=== PATIENT | female | born 1990 | race American Indian/Alaskan Native ===

== ENCOUNTER 2017-05-18 11:02 | Inpatient (IN) | payer MEDICAID ==
[2017-05-18 13:36] LABS: Hematocrit 35.2 % (30.3-42.9); Hemoglobin 11.7 gm/dl (10.1-14.3); Mean Corpuscular HGB Conc 33 % (30-34); Mean Corpuscular Hemoglobin 32 pg (28-32); Mean Corpuscular Volume 96 fl (79-97); Platelet Count 190 K/mm3 (140-440); Red Blood Count 3.68 M/mm3 (3.65-5.03); Red Cell Distribution Width 13.9 % (13.2-15.2); White Blood Count 8.9 K/mm3 (4.5-11.0)
[2017-05-18] MEDS ORDERED: ePHEDrine SULFATE IV PRN (14:17)
[2017-05-18] MEDS ORDERED: NARCAN 0.4 MG/1 ML IV PRN ×2 (14:17→21:16)
[2017-05-18] MEDS ORDERED: SUBLIMAZE IV PRN (14:17)
[2017-05-18] MEDS ORDERED: XYLOCAINE 2% INFILTRATI ONE (14:17)
[2017-05-18] MEDS ORDERED: PHENERGAN PO PRN (14:17)
[2017-05-18] MEDS ORDERED: STADOL IV PRN (14:17)
[2017-05-18] MEDS ORDERED: ZOFRAN IV PRN (14:17)
[2017-05-18] MEDS ORDERED: MINERAL OIL PO PRN (14:17)
[2017-05-18] MEDS ORDERED: BRETHINE SUB-Q PRN (14:27)
[2017-05-18] MEDS ORDERED: BRETHINE IVP PRN (14:29)
[2017-05-18] MEDS ORDERED: PITOCin/NS 30 UNIT/500ML 30 UNITS/500 ML BAG IV SCH ×2 (15:00)
[2017-05-18] MEDS ORDERED: PITOCin/NS 20 UNIT/1000ML DRIP 20 UNITS/1,000 ML BAG IV SCH ×3 (15:00→22:00)
--- NOTE | 2017-05-18 15:15 | History and Physical Report ---
History of Present Illness Date of examination: 05/18/17 Date of admission: 05/18/17 13:57 Chief complaint: lsrom clear this am History of present illness: 26 yo at 37+1 weeks came in for srom clear this am . She has no other complaints. Good fm no vb No contractions. 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: trichomonas (treated jl neg in february ) Family/Genetic History: cancer (breast cancer Grandmother ) Social history: smoking - Obstetrical History Expected Date of Delivery: 06/07/17 Actual Gestation: 37 Week(s) 1 Day(s) : 1 Para: 0 Hx # Term Pregnancies: 0 Number of Pregnancies: 0 Spontaneous Abortions: 0 Induced : 0 Number of Living Children: 0 Medications and Allergies Allergies Allergy/AdvReac Type Severity Reaction Status Date / Time No Known Allergies Allergy Unverified 07/24/13 13:27 Home Medications Medication Instructions Recorded Confirmed Last Taken Type Gentamicin 0.3% Ophth Soln 2 drops OP Q4H #1 bottle 03/03/14 Unknown Rx HYDROcodone/APAP 5-325 [[place] 1 each PO Q6HR PRN #14 tablet 03/03/14 Unknown Rx 5-325 mg TAB] Active Meds: Active Medications Butorphanol Tartrate (Stadol) 2 mg IV Q2H PRN PRN Reason: Pain , Severe (7-10) Fentanyl (Sublimaze) 100 mcg IV Q2H PRN PRN Reason: Labor Pain Lactated Ringer's (Lactated Ringers) 1,000 mls @ 125 mls/hr IV DIRECT ADOLFO Oxytocin/Sodium Chloride (Pitocin/Ns 20 Unit/1000ml Drip) 20 units in 1,000 mls @ 125 mls/hr IV DIRECT ADOLFO Oxytocin/Sodium Chloride (Pitocin/Ns 30 Unit/500ml) 30 units in 500 mls @ 0 mls /hr IV TITR ADOLFO; As Directed PRN Reason: Protocol Oxytocin/Sodium Chloride (Pitocin/Ns 30 Unit/500ml) 30 units in 500 mls @ 1 mls /hr IV TITR ADOLFO; 1 MILLIUNITS/MIN PRN Reason: Protocol Mineral Oil (Mineral Oil) 30 ml PO QHS PRN PRN Reason: Constipation Naloxone HCl (Narcan 0.4 Mg/1 Ml) 0.1 mg IV Q2MIN PRN PRN Reason: Res Rate </= 8 or 02 SAT < 92% Ondansetron HCl (Zofran) 4 mg IV Q8H PRN PRN Reason: Nausea And Vomiting Promethazine HCl (Phenergan) 25 mg PO Q6H PRN PRN Reason: Nausea And Vomiting Review of Systems Genitourinary: leakage of fluid - Vital Signs Vital signs: Vital Signs Pulse Pulse Ox 270 H 82 L 05/18/17 11:43 05/18/17 11:43 Temp Pulse Resp BP Pulse Ox 79 143/92 82 L 05/18/17 14:38 05/18/17 14:38 05/18/17 12:44 - Physical Exam Breasts: Positive: deferred Cardiovascular: Regular rate, Normal S1 Lungs: Positive: Clear to auscultation, Normal air movement Abdomen: Positive: normal appearance, soft, normal bowel sounds. Negative: distention Genitourinary (Female): Positive: normal external genitalia, normal perenium Uterus: Positive: normal size, enlarged Anus/Rectum: Positive: normal perianal skin, heme negative Extremities: Positive: normal Deep Tendon Reflex Grade: Normal +2 - Obstetrical FHR: category 1 Cervical Dilatation: 1.5 Cervical Effacement Percentage: 30 station: -4 Uterine Tone Measurement Phase: Resting Results Result Diagrams: 05/18/17 13:02 All other labs normal. Assessment and Plan A/P IUP 37+1 weeks Morbid obesity unknown GBS ( per patient neg) SROM clear non compliant gestational diabetic ( did not perform glucose monitoring) FS q3hrs US for presentation, efw, location of placenta and BPP EFM consider augmentation of labor
[2017-05-18 16:49] LABS: Hematocrit 32.4 % (30.3-42.9); Hemoglobin 11.1 gm/dl (10.1-14.3); Mean Corpuscular HGB Conc 34 % (30-34); Mean Corpuscular Hemoglobin 32 pg (28-32); Mean Corpuscular Volume 95 fl (79-97); Platelet Count 169 K/mm3 (140-440); Red Blood Count 3.43 M/mm3 (3.65-5.03); Red Cell Distribution Width 14.3 % (13.2-15.2); White Blood Count 7.8 K/mm3 (4.5-11.0)
--- NOTE | 2017-05-18 18:34 | Ultrasound Report ---
FINAL REPORT EXAM: US OB TRANSVAGINAL HISTORY: placenta scan TECHNIQUE: Obstetrical ultrasound transvaginal for evaluation of the placenta PRIORS: None. FINDINGS: The placenta is posterior and right lateral. It does not appear low lying. Placental grade 3. No evidence for abruption IMPRESSION: Stent is posterior and right lateral
--- NOTE | 2017-05-18 18:41 | Ultrasound Report ---
FINAL REPORT EXAM: US OB FOLLOW UP HISTORY: BPP, EFW, CRISTO, placenta location, TECHNIQUE: Ultrasound obstetrical transabdominal PRIORS: No prior studies are available for comparison FINDINGS: Single live intrauterine gestation is identified. biometric measurements were obtained Biparietal diameter 37 weeks 6 days Head circumference 37 weeks 2 days Abdominal circumference 37 weeks 2 days Femur length 37 weeks 2 days Composite gestational age 37 weeks 3 days with estimated date of delivery June 05, 2017 Estimated weight today is 3176 grams 7 pounds 0 ounces. This is 62 percentile for gestational age. cardiac activity present with heart rate of 136 beats per minute IMPRESSION: Single live intrauterine gestation estimated at 37 weeks 3 days Estimated weight 3176 grams
--- NOTE | 2017-05-18 18:50 | Ultrasound Report ---
FINAL REPORT EXAM: US OB BPP WO NON-STRESS HISTORY: iup 37 weeks, GDM, obesity, noncompliance TECHNIQUE: Ultrasound obstetrical biophysical profile PRIORS: None. FINDINGS: Biophysical profile performed Breathing movement 0 movement 0 posture in tone 0 Amniotic fluid volume 0 Deepest pocket measurement 0. Deepest pocket as noted on the ultrasound is 1.8 less than 2. IMPRESSION: Biophysical profile 0/8 Oligohydramnios with amniotic fluid index of 4.2 centimeters
[2017-05-18] MEDS ORDERED: BICITRA ONE (19:00)
[2017-05-18] MEDS ORDERED: REGLAN IV ONE (19:00)
[2017-05-18] MEDS ORDERED: PEPCID IV ONE ×2 (19:00→19:01)
[2017-05-18] MEDS ORDERED: BICITRA PO ONE (19:00)
[2017-05-18] MEDS ORDERED: NEO SYNEPHRINE/NS Syringe(OR USE) IV ONE (19:00)
[2017-05-18] MEDS ORDERED: ANCEF/STERILE WATER 2 GM/20 ML 2 GM/20 ML SYRINGE IV NR (19:00)
[2017-05-18] MEDS ORDERED: LACTATED RINGERS 1,000 ML IV SCH (19:00)
[2017-05-18] MEDS ORDERED: REGLAN ONE (19:01)
[2017-05-18] MEDS ORDERED: ANCEF/STERILE WATER 2 GM/20 ML 2 GM/20 ML SYRINGE IV ONE (19:01)
--- NOTE | 2017-05-18 19:23 | Anesthesia Consultation ---
Anesthesia Consult and Med Hx Date of service: 05/18/17 - Airway Anesthetic Teeth Evaluation: Good ROM Head & Neck: Adequate Mental/Hyoid Distance: Adequate Mallampati Class: Class II Intubation Access Assessment: Probably Good - Pulmonary Exam CTA: Yes - Cardiac Exam Cardiac Exam: RRR - Pre-Operative Health Status ASA Pre-Surgery Classification: ASA3 Proposed Anesthetic Plan: Epidural, Spinal - Pulmonary Hx Asthma: No COPD: No Hx Pneumonia: No - Cardiovascular System Hx Hypertension: No - Central Nervous System Hx Seizures: No Hx Psychiatric Problems: No - Endocrine Hx Renal Disease: No Hx End Stage Renal Disease: No Hx Hypothyroidism: No Hx Hyperthyroidism: No - Hematic Hx Anemia: No Hx Sickle Cell Disease: No - Other Systems Hx Alcohol Use: No Hx Obesity: Yes (BMI >40) - Additional Comments Anesthesia Medical History Comments: +IUP
[2017-05-18] MEDS ORDERED: BENADRYL IV PRN (19:24)
[2017-05-18] MEDS ORDERED: MORPHINE IV PRN ×3 (19:24→21:16)
[2017-05-18] MEDS ORDERED: TORADOL IV PRN (19:24)
[2017-05-18] MEDS ORDERED: NACL 0.9% IR ONE (19:25)
[2017-05-18] MEDS ORDERED: MORPHINE ONE (19:26)
[2017-05-18] MEDS ORDERED: ZOFRAN ONE (19:33)
[2017-05-18] MEDS ORDERED: ANCEF/STERILE WATER 2 GM/20 ML IV ONE (19:50)
[2017-05-18] MEDS ORDERED: SODIUM CHLORIDE FLUSH SYRINGE 10 ML IV NR (20:00)
[2017-05-18] MEDS ORDERED: VERSED ONE ×2 (20:23→20:42)
[2017-05-18] MEDS ORDERED: SUBLIMAZE ONE (20:41)
[2017-05-18] MEDS ORDERED: WATER FOR IRRIG STERILE IR ONE (21:00)
--- NOTE | 2017-05-18 21:10 | Procedure Note ---
OB Delivery Note - Delivery Date of Delivery: 05/18/17 Surgeon: MICHELLE ZARAGOZA Estimated blood loss: other (800 cc) - Section Preop diagnosis: other (BPP 2, ) Postop diagnosis: same section procedure: section Disposition: PACU Complications: none Narrative: see op note- - Infant A at 1 minute: 8 at 5 minutes: 9 Gender: Female
[2017-05-18] MEDS ORDERED: NORCO 5/325 PO PRN (21:16)
[2017-05-18] MEDS ORDERED: TUCKS PAD TP PRN (21:16)
[2017-05-18] MEDS ORDERED: PHENERGAN PR PRN (21:16)
[2017-05-18] MEDS ORDERED: TYLENOL PO PRN (21:16)
[2017-05-18] MEDS ORDERED: MILK OF MAGNESIA PO PRN (21:16)
[2017-05-18] MEDS ORDERED: MYLICON PO PRN (21:16)
[2017-05-18] MEDS ORDERED: LANSINOH TP PRN (21:16)
[2017-05-18] MEDS ORDERED: SENOKOT PO PRN (21:16)
[2017-05-18] MEDS ORDERED: ANUCORT-HC PR PRN (21:16)
--- NOTE | 2017-05-18 21:16 | Operative Report ---
Operative Report Operative Report: PREOPERATIVE DIAGNOSES: 1. Intrauterine at term. 2. BPP 2/10 3. GDM 4. SROM 5. Morbid Obesity POSTOPERATIVE DIAGNOSES: 1 SUNSHINE PROCEDURE PERFORMED: Primary low-transverse section. ANESTHESIA: Epidural. ESTIMATED BLOOD LOSS: 800 mL. COMPLICATIONS: None. FINDINGS: Female infant in cephalic presentation, OA position, weight 8 pounds 4 ounces. Apgars were 9 at 1 minute and 9 at 5 minutes. Normal uterus, tubes, and ovaries were noted. INDICATIONS: The patient is a 26-year-old 1, para 0 female, who presented to labor and delivery with SROM at 37 weeks Patient had a BPP revealing a BPP 0/8 A decision was made to proceed with a primary low transverse section. The procedure was described to the patient in detail including possible risks of bleeding, infection, injury to surrounding organs, and possible need for further surgery. Informed consent was obtained prior to proceeding with the procedure. PROCEDURE NOTE: The patient was taken to the operating room where epidural anesthesia was found to be adequate. The patient was prepped and draped in the usual sterile fashion in the dorsal supine position with a left-leon tilt. A Pfannenstiel skin incision was made with the scalpel and carried through to the underlying layer of fascia using the Bovie. The fascia was incised in the midline and extended laterally using Floyd scissors. Monroe clamps were used to elevate the superior aspect of the fascial incision, which was elevated, and the underlying rectus muscles were dissected off bluntly and using Floyd scissors. Attention was then turned to the inferior aspect of the fascial incision, which in similar fashion was grasped with Monroe clamps, elevated, and the underlying rectus muscles were dissected off bluntly and using Floyd scissors. The rectus muscles were dissected in the midline. The peritoneum was bluntly dissected, entered, and extended superiorly and inferiorly with good visualization of the bladder. The bladder blade was inserted. The vesicouterine peritoneum was identified with pickups and entered sharply using Metzenbaum scissors. This incision was extended laterally and the bladder flap was created digitally. The bladder blade was reinserted. The lower uterine segment was incised in a transverse fashion using the scalpel and extended using manual traction. Clear fluid was noted. The infant was subsequently delivered atraumatically. The nose and mouth were bulb suctioned. The cord was clamped and cut. The was subsequently handed to the awaiting nursery nurse. Next, cord blood was obtained per the patient's request for cord blood donation, which took several minutes to perform. Subsequent to the collection of this blood, the placenta was removed spontaneously intact with a 3-vessel cord noted. The uterus was exteriorized and cleared of all clots and debris. The uterine incision was repaired in 2 layers using 0 chromic suture. Hemostasis was visualized. The uterus was returned to the abdomen. The pelvis was copiously irrigated. The uterine incision was reexamined and was noted to be hemostatic. The rectus muscles were reapproximated in the midline using 3-0 Vicryl. The fascia was closed with 0 Vicryl, the subcutaneous layer was closed with 3-0 plain gut, and the skin was closed with marcus. Sponge, lap , and instrument counts were correct x2. The patient was stable at the completion of the procedure and was subsequently transferred to the recovery room in stable condition.
--- NOTE | 2017-05-18 21:36 | Post Anesthesia Evaluation ---
- Post Anesthesia Evaluation Patient Participated: Yes Airway Patent: Yes Stable Respiratory Function: Yes Nausea/Vomiting: No Temp > 96.8F: Yes Pain Manageable: Yes Adequeate Hydration: Yes Anesthesia Complications: No Block Receding Appropriately: Not Applicable Patient on Ventilator: No
[2017-05-18] MEDS ORDERED: SODIUM CHLORIDE FLUSH SYRINGE 10 ML IV SCH (22:00)
[2017-05-19] MEDS: LACTATED RINGERS 1,000 ML IV SCH ×2 (01:31→08:48)
[2017-05-19] MEDS ORDERED: BOOSTRIX IM ONE (06:00)
[2017-05-19 09:26] LABS: Hematocrit 24.6 % (30.3-42.9); Hemoglobin 8.2 gm/dl (10.1-14.3)
[2017-05-19] MEDS: PERCOCET 5/325 PO PRN ×2 (12:56→17:02)
[2017-05-19] MEDS ORDERED: BENADRYL PO PRN (15:35)
--- NOTE | 2017-05-19 16:57 | Progress Note ---
Assessment and Plan POD#1 s/p c/s doing well ambulating well pain well controlled advance diet continue routine post op orders Subjective - Subjective Date of service: 05/19/17 Principal diagnosis: s/p Interval history: 26 yo at 37+1 weeks came in for srom clear this am . She has no other complaints. Good fm no vb No contractions. OB problem list include Trich in this JL neg 03/07 smoker hx of low lying placenta resolved elevated 1hr GTT -diet controlled-non compliant in [facility] and testing no meds Patient reports: appetite normal, voiding normally, pain well controlled, flatus , ambulating normally : doing well, nursing well Objective - Vital Signs Latest vital signs: Vital Signs Temp Pulse Resp BP Pulse Ox 05/19/17 08:05 99.2 F 88 18 132/66 05/19/17 05:08 98.7 F 72 20 141/79 05/18/17 23:15 98.4 F 80 18 144/70 05/18/17 22:25 95 H 17 134/73 97 05/18/17 22:20 108 H 21 133/78 97 05/18/17 22:15 112 H 20 152/85 97 05/18/17 22:13 98.8 F 05/18/17 22:10 88 20 137/81 98 05/18/17 22:05 100 H 16 148/91 100 05/18/17 22:00 91 H 18 155/78 99 05/18/17 21:55 78 13 146/68 100 05/18/17 21:50 92 H 21 133/76 99 05/18/17 21:46 104 H 26 H 133/76 100 05/18/17 21:40 89 24 115/73 05/18/17 21:36 94 H 17 126/77 98 05/18/17 21:30 73 16 150/63 05/18/17 21:25 73 17 145/67 99 05/18/17 21:20 86 21 05/18/17 21:19 98.1 F 05/18/17 18:52 99 H 100 05/18/17 18:47 91 H 100 05/18/17 18:42 75 100 05/18/17 18:37 73 99 05/18/17 18:32 98.4 F 66 16 110/60 100 05/18/17 18:27 92 H 100 05/18/17 18:23 82 153/79 05/18/17 18:22 89 99 Intake and Output 05/19/17 05/19/17 05/19/17 06:59 14:59 22:59 Intake Total 1120 1740 Output Total 500 Balance 620 1740 Intake: IV 1000 1500 Lactated Ringers 1,000 ml 685 1000 @ 125 mls/hr IV DIRECT ADOLFO Rx#:[id number] Lactated Ringers 1,000 ml 500 @ 2250 mls/hr IV PREOP ADOLFO Rx#:[id number] PITOCin/NS 20 UNIT/1000ML 315 DRIP 20 units In 1,000 ml @ 125 mls/hr IV DIRECT ADOLFO Rx#:[id number] Intake, Free Water 120 240 Output: Urine 500 Indwelling Catheter 500 Other: Total, Output Amount 500 - Exam Breasts: Present: deferred Cardiovascular: Present: Regular rate, Normal S1 Lungs: Present: Clear to auscultation, Normal air movement Abdomen: Present: normal appearance, soft. Absent: distention, tenderness, guarding Uterus: Present: normal, firm, fundal height below umbilicus. Absent: bogginess , tenderness Extremities: Present: normal. Absent: tenderness Deep Tendon Reflex Grade: Normal +2 Incision: Present: normal, dry, dressed - Labs Labs: Abnormal lab results 05/19/17 05/19/17 Range/Units 01:54 09:06 Hgb 8.2 L (10.1-14.3) gm/dl Hct 24.6 L D (30.3-42.9) % POC Glucose 106 H (70-105)
[2017-05-19] MEDS: MOTRIN PO PRN (17:02)
[2017-05-19] MEDS ORDERED: M-M-R II VACCINE SUB-Q ONE (21:17)
[2017-05-20] MEDS: MOTRIN PO PRN ×4 (00:33→19:11)
[2017-05-20] MEDS: PERCOCET 5/325 PO PRN ×4 (00:34→19:09)
--- NOTE | 2017-05-20 08:57 | Progress Note ---
Assessment and Plan A/P POD#2 s/p c/sec for BPP 2 pain increased this am but mised doses of pain meds Recommend taking pain meds around clock 2 percocert and then alternating with motrin MOM and mylanta bowel regimen encourage ambulation consider d/c home tomorrow Subjective - Subjective Date of service: 05/20/17 Principal diagnosis: s/p Interval history: 26 yo at 37+1 weeks came in for srom clear this am . She has no other complaints. Good fm no vb No contractions. OB problem list include Trich in this JL neg 03/07 smoker hx of low lying placenta resolved elevated 1hr GTT -diet controlled-non compliant in [facility] and testing no meds Patient reports: appetite normal, voiding normally, pain well controlled, flatus , ambulating normally : doing well, nursing well Objective - Vital Signs Latest vital signs: Vital Signs Temp Pulse Resp BP 05/20/17 00:00 98.6 F 71 16 121/81 05/19/17 16:36 98.8 F 86 18 120/66 05/19/17 11:40 99.3 F 88 20 138/70 Intake and Output 05/19/17 05/20/17 05/20/17 22:59 06:59 14:59 Intake Total 840 250 Output Total 600 Balance 240 250 Intake: Oral 600 250 Intake, Free Water 240 Output: Urine 600 Void 600 Other: Total, Intake Amount 240 250 Total, Output Amount 600 - Exam Breasts: Present: normal Cardiovascular: Present: Regular rate, Normal S1 Lungs: Present: Clear to auscultation, Normal air movement Abdomen: Present: normal appearance, soft, normal bowel sounds. Absent: distention, tenderness Uterus: Present: normal, firm, fundal height below umbilicus. Absent: bogginess , tenderness Extremities: Present: normal Deep Tendon Reflex Grade: Normal +2 Incision: Present: normal, dry, intact - Labs Labs: Abnormal lab results 05/19/17 Range/Units 09:06 Hgb 8.2 L (10.1-14.3) gm/dl Hct 24.6 L D (30.3-42.9) %
[2017-05-20] MEDS: FEOSOL PO SCH (10:15)
[2017-05-20] MEDS: PRENATAL VITAMIN PO SCH (10:34)
[2017-05-21] MEDS: MOTRIN PO PRN ×2 (02:17→07:57)
[2017-05-21] MEDS: PERCOCET 5/325 PO PRN ×2 (02:19→07:58)
--- NOTE | 2017-05-21 08:36 | Progress Note ---
Assessment and Plan A: POD#3 s/p section, asymptomatic anemia P: Routine care. Discharge home today with follow up in office in two weeks for incision check. Subjective - Subjective Date of service: 05/21/17 Principal diagnosis: s/p Interval history: Pt feels well and wants to go home. Patient reports: appetite normal, voiding normally, pain well controlled, flatus , ambulating normally, no bowel movement, no nauseated : doing well Objective - Vital Signs Latest vital signs: Vital Signs Temp Pulse Resp BP 05/21/17 02:19 18 05/21/17 02:17 18 05/21/17 00:00 98.6 F 81 16 121/81 05/20/17 16:30 98.6 F 60 18 150/89 Intake and Output 05/20/17 05/21/17 05/21/17 22:59 06:59 14:59 Intake Total 480 600 Balance 480 600 Intake: Oral 480 300 Intake, Free Water 300 Other: Total, Intake Amount 480 300 # Voids Void 1 - Exam Breasts: Present: deferred Cardiovascular: Present: Regular rate Lungs: Present: Clear to auscultation Abdomen: Present: soft (obese ), normal bowel sounds Uterus: Present: fundal height below umbilicus Extremities: Present: normal Incision: Present: intact - Labs Labs: Abnormal lab results 05/18/17 Range/Units 16:02 POC Glucose 140 H (70-105)
--- NOTE | 2017-05-21 08:36 | Discharge Summary ---
Providers - Providers Date of Admission: 05/18/17 13:57 Date of discharge: 05/21/17 Attending physician: MICHELLE ZARAGOZA MD Primary care physician: PRESSURE WASHER Hospitalization Reason for admission: other (Non-reassuring status) Delivery: Procedure: section, primary low transverse Procedure details: Please see operative note. Incision: intact Other procedures: none complications: none Discharge diagnosis: IUP at term delivered baby: female Hospital course: Pt was admitted for primary section which she tolerated well. Her postoperative course was uncomplicated and she met discharge criteria on POD#3. She will follow up in 2 weeks for an incision check. Condition at discharge: Stable Disposition: DC- TO HOME OR SELFCARE - Discharge Diagnoses (1) Term of female Status: Acute (2) Morbid obesity Status: Acute (3) Anemia Status: Acute Qualifiers: Anemia type: unspecified type Iron deficiency anemia type: I Vitamin B12 deficiency anemia type: V Folate deficiency anemia type: F Bone marrow failure anemia type: B Hemolytic anemia type: H Other causes of anemia: O Chronic kidney disease stage: C Qualified Code(s): D64.9 - Anemia, unspecified (4) Gestational diabetes Status: Acute Qualifiers: Gestational diabetes mellitus control: unspecified Trimester: third trimester Qualified Code(s): O24.419 - Gestational diabetes mellitus in , unspecified control Plan - Discharge Medications Prescriptions: Ferrous Sulfate [Feosol 325 MG tab] 325 mg PO BID #60 tablet Ibuprofen [Motrin] 800 mg PO Q8HR PRN #30 tablet PRN Reason: Pain oxyCODONE /ACETAMINOPHEN [Percocet 5/325] 1 tab PO Q6HR PRN #40 tablet PRN Reason: Pain - Provider Discharge Summary Activity: routine, no sex for 6 weeks, no heavy lifting 4 weeks, no strenuous exercise Diet: routine Instructions: routine Additional instructions: [] Smoking cessation referral if applicable(refer to patient education folder for contact #) [] Refer to [facility]'s [facility] Booklet Call your doctor immediately for: * Fever > 100.5 * Heavy vaginal bleeding ( >1 pad per hour) * Severe persistent headache * Shortness of breath * Reddened, hot, painful area to leg or breast * Drainage or odor from incision. * Keep incision clean and dry at all times and follow doctor's instructions regarding bathing/showering - Follow up plan Follow up: PRIMARY CARE, [Primary Care Provider] - 7 Days MICHELLE ZARAGOZA MD [Staff Physician] - 06/04/17 (incision exam- please call to schedule appt)
[2017-05-21] MEDS ORDERED: MILK OF MAGNESIA PO NR (09:00)
[2017-05-21 10:02] VITALS: BP 155/80
[2017-05-21] MEDS: PRENATAL VITAMIN PO SCH (10:50)
[2017-05-21] MEDS: FEOSOL PO SCH (10:50)
== END 2017-05-21 11:40 | disposition home or self-care (01) | DRG 765 ==
LOC: TRG 11:02 → LD 13:57 → TRG 13:57 → OB 22:50
PROVIDERS: ADMIT Obstetrics & Gynecology; ATTEND Obstetrics & Gynecology
PROC: 10D00Z1 Extraction of Products of Conception, Low, Open Approach (ICD-10-PCS; principal; 2017-05-18)
DX: O24.429 Gestational diabetes mellitus in childbirth, unspecified control (principal); O16.4 Unspecified maternal hypertension, complicating childbirth; Z68.41 Body mass index [BMI] 40.0-44.9, adult; O99.214 Obesity complicating childbirth; O42.92 Full-term premature rupture of membranes, unspecified as to length of time between rupture and onset of labor; O99.03 Anemia complicating the puerperium; O99.334 Smoking (tobacco) complicating childbirth; F17.200 Nicotine dependence, unspecified, uncomplicated; E66.01 Morbid (severe) obesity due to excess calories; Z3A.37 37 weeks gestation of pregnancy; Z37.0 Single live birth; D64.9 Anemia, unspecified
CPT/HCPCS: 36415; 76816; 76817; 76819; 82962; 85014; 85018; 85027; 86592; 86850; 86900; 86901; 88307; 99211; A6250; C9250; G0463; J0690; J1200; J1885; J2250; J2270; J2370; J2405; J2590; J2765; J3010; J7120

== ENCOUNTER 2017-05-24 16:11 | Inpatient (IN) | payer MEDICAID ==
[2017-05-24] MEDS ORDERED: MAGNESIUM SULFATE 4GM/100ML 4 GM/100 ML BAG IV ONE ×2 (16:13→19:00)
[2017-05-24] MEDS ORDERED: CALCIUM GLUCONATE IV ONE (16:13)
--- NOTE | 2017-05-24 16:18 | History and Physical Report ---
History of Present Illness Date of examination: 05/24/17 Date of admission: 05/24/17 16:11 Chief complaint: sent from the clinic History of present illness: Pt is a 26 year old -Cymraes POD#6 s/p primary section who presented to the office today with blood pressures in the 140-150s/90-100s. She denies headache, blurry vision or RUQ pain. She does reports LLE swelling since the day after she was discharged (05/22). Her was complicated by morbid obesity, gestational diabetes, trichomonas with a negative test of cure, and tobacco use. She was also found to have an incisional wound infection during her examination in the office. Past History Past Medical History: hypertension (questionable history of chronic hypertension ), other (morbid obesity ) Past Surgical History: section MAIL PROCESSOR History: trichomonas (treated with negative test of cure ) Family/Genetic History: cancer Social history: single, smoking - Obstetrical History : 1 Medications and Allergies Allergies Allergy/AdvReac Type Severity Reaction Status Date / Time No Known Allergies Allergy Unverified 07/24/13 13:27 Home Medications Medication Instructions Recorded Confirmed Last Taken Type Gentamicin 0.3% Ophth Soln 2 drops OP Q4H #1 bottle 03/03/14 05/19/17 Unknown Rx HYDROcodone/APAP 5-325 [[place] 1 each PO Q6HR PRN #14 tablet 03/03/14 05/19/17 Unknown Rx 5-325 mg TAB] Ferrous Sulfate [Feosol 325 MG tab] 325 mg PO BID #60 tablet 05/21/17 Unknown Rx Ibuprofen [Motrin] 800 mg PO Q8HR PRN #30 tablet 05/21/17 Unknown Rx oxyCODONE /ACETAMINOPHEN [Percocet 1 tab PO Q6HR PRN #40 tablet 05/21/17 Unknown Rx 5/325] Active Meds: Active Medications Calcium Gluconate (Calcium Gluconate) 1,000 mg IV ONCE ONE Stop: 05/24/17 16:14 Lactated Ringer's (Lactated Ringers) 1,000 mls @ 125 mls/hr IV DIRECT ADOLFO Magnesium Sulfate (Magnesium Sulfate 40gm/1000ml) 1,000 mls @ 50 mls/hr IV TITR NR PRN Reason: 2 GM/HR Magnesium Sulfate (Magnesium Sulfate 4gm/100ml) 4 gm in 100 mls @ 300 mls/hr IV ONCE ONE Stop: 05/24/17 16:32 Review of Systems All systems: negative Constitutional: no fever, no chills, no sweats - Physical Exam Breasts: Positive: deferred Cardiovascular: Regular rate Lungs: Positive: Clear to auscultation Abdomen: Positive: soft (obese; incision with bullous changes ) Extremities: Positive: edema (LLE 2+, no edema of the RLE). Negative: tenderness (bilaterally ) Results All other labs normal. Assessment and Plan A: POD#6 s/p primary section preeclampsia Postoperative Wound Infection Edema of Left Lower Extremity Morbid Obesity P: Admit to Mother-Baby Magnesium Sulfate for sezuire prophylaxis PIH labs LLE doppler to evaluate for DVT IV antibiotics while hospitalized Closely monitor clinical status.
[2017-05-24] MEDS ORDERED: MAGNESIUM SULFATE 40GM/1000ML 40 GM/1,000 ML BAG IV NR ×2 (17:00→19:00)
[2017-05-24] MEDS ORDERED: LACTATED RINGERS 1,000 ML IV SCH (17:00)
[2017-05-24 19:20] LABS: Hemoglobin 6.4 gm/dl (10.1-14.3); Mean Corpuscular HGB Conc 34 % (30-34); Mean Corpuscular Hemoglobin 32 pg (28-32); Mean Corpuscular Volume 95 fl (79-97); Platelet Count 311 K/mm3 (140-440); Red Cell Distribution Width 14.1 % (13.2-15.2); White Blood Count 7.4 K/mm3 (4.5-11.0)
[2017-05-24 19:40] LABS: Alanine Aminotransferase 31 units/L (7-56); Lactate Dehydrogenase 233 units/L (91-180); Uric Acid 6.6 mg/dL (3.5-7.6)
[2017-05-24 20:04] LABS: Bilirubin,Urine NEG (Negative); Blood,Urine NEG (Negative); Ketones,Urine NEG (Negative); Leukocyte Esterase,Urine NEG (Negative); Mucus,Urine FEW /HPF; Nitrite,Urine NEG (Negative); Protein,Urine <15 mg/dL mg/dL (Negative)
[2017-05-24] MEDS: MOTRIN PO PRN (20:27)
[2017-05-24] MEDS ORDERED: NORMODYNE PO SCH (21:00)
[2017-05-24] MEDS: APRESOLINE IV PRN (21:15)
[2017-05-25] MEDS: PERCOCET 5/325 PO PRN ×2 (00:23→05:20)
[2017-05-25] MEDS: APRESOLINE IV PRN ×2 (00:24→05:20)
--- NOTE | 2017-05-25 07:02 | Vascular Lab Report ---
Left Lower Extremity Venous Duplex Study: Reason for Exam: Edema of the left lower extremity. Comments on the Right: A limited duplex study was done of the proximal veins of the right lower extremity. All veins visualized are freely compressible without evidence of internal echogenicity. Flow is spontaneous and phasic throughout. No evidence of acute or chronic thrombus is seen in any of the vessels visualized. Comments on the Left: All veins visualized are freely compressible without evidence of internal echogenicity. Flow is spontaneous and phasic throughout. No evidence of acute or chronic thrombus is seen in any of the vessels visualized. Impression: No evidence of acute or chronic deep venous thrombosis in the left lower extremity.
--- NOTE | 2017-05-25 08:23 | Progress Note ---
Assessment and Plan A: POD#7 s/p primary section preeclampsia s/p 5 hrs of magnesium sulfate before patient refusal to continue administration Severe anemia- pt refuses blood transfusion Postoperative Wound Infection Edema of Left Lower Extremity- negative doppler study, improving Morbid Obesity P: Pt refusing recommend treatments for her preeclampsia and anemia. Plan to discharge home with follow up in 1 week. Subjective - Subjective Date of service: 05/25/17 Principal diagnosis: Preeclampsia Interval history: Overnight, the patient refused magnesium sulfate after 1 am because she reports she did not like the way it makes her feel. A magnesium level was drawn when the patient began to complain as was known to be 3.2. She reports headache this morning as well. She was also offered a blood transfusion secondary to her low hematocrit. She pondered her decision for over an hour, then decided that she did not want the transfusion and wants to go home. Patient reports: appetite normal Objective - Vital Signs Latest vital signs: Vital Signs Temp Pulse Resp BP Pulse Ox 05/25/17 06:25 98.2 F 95 H 20 162/103 05/25/17 05:20 96 H 155/97 05/25/17 04:35 98.5 F 96 H 18 155/97 05/25/17 02:00 98.8 F 105 H 18 165/87 05/25/17 01:15 26 H 100 05/25/17 00:24 97 H 162/101 05/24/17 22:10 98.7 F 95 H 18 179/96 05/24/17 21:15 96 H 171/100 05/24/17 21:14 96 H 171/100 05/24/17 20:00 98.4 F 96 H 18 171/100 05/24/17 19:55 98.9 F 95 H 18 162/83 05/24/17 19:50 98.8 F 94 H 18 150/84 05/24/17 19:45 99.0 F 90 18 157/87 05/24/17 19:40 98.8 F 93 H 18 163/88 05/24/17 16:45 98.8 F 108 H 18 150/81 Intake and Output 05/24/17 05/25/17 05/25/17 22:59 06:59 14:59 Output Total 1300 2200 Balance -1300 -2200 Output: Urine 1300 2200 Indwelling Catheter 1300 2200 Other: Total, Output Amount 1300 1200 Voiding Method Indwelling Catheter Indwelling Catheter Weight 97.522 kg - Exam Breasts: Present: deferred Cardiovascular: Present: Regular rate Lungs: Present: Clear to auscultation Abdomen: Present: soft (obese) Uterus: Present: fundal height below umbilicus Extremities: Present: edema (edema of LLE, improved since yesterday however 1+) Incision: Present: intact (bullous changes ) - Labs Labs: Abnormal lab results 05/24/17 05/24/17 05/25/17 Range/Units 18:41 18:41 01:30 RBC 2.00 L (3.65-5.03) M/mm3 Hgb 6.4 L (10.1-14.3) gm/dl Hct 19.0 L* (30.3-42.9) % Magnesium 3.20 H (1.7-2.3) mg/dL Lactate Dehydrogenase 233 H (91-180) units/L
[2017-05-25] MEDS ORDERED: NORMODYNE PO SCH (09:00)
[2017-05-25] MEDS: MOTRIN PO PRN (09:44)
--- NOTE | 2017-05-25 10:02 | Discharge Summary ---
Providers - Providers Date of Admission: 05/24/17 16:32 Date of discharge: 05/25/17 Attending physician: MARIUM HORNE Primary care physician: MARIUM HORNE Hospitalization Reason for admission: other ( preeclampsia ) Discharge diagnosis: other Hospital course: Pt was admitted for preeclampsia and was found to have severe anemia upon admission. She received 5 hours of magnesium sulfate before she refused the medication. She also refused a blood transfusion for her severe anemia. She signed the Against Medical Advice (AMA) form and was discharged with follow up in 1 week for a blood pressure check. Condition at discharge: Stable Disposition: DC-01 TO HOME OR SELFCARE - Discharge Diagnoses (1) Preeclampsia in period Status: Acute (2) Anemia Status: Acute Qualifiers: Anemia type: unspecified type Iron deficiency anemia type: I Vitamin B12 deficiency anemia type: V Folate deficiency anemia type: F Bone marrow failure anemia type: B Hemolytic anemia type: H Other causes of anemia: O Chronic kidney disease stage: C Qualified Code(s): D64.9 - Anemia, unspecified (3) Morbid obesity Status: Acute Plan - Discharge Medications Prescriptions: Docusate Sodium [Colace] 100 mg PO BID PRN #60 capsule PRN Reason: Constipation Ferrous Sulfate [Feosol 325 MG tab] 325 mg PO TID #90 tablet Furosemide [Lasix TAB] 40 mg PO QDAY #7 tablet Labetalol HCl 400 mg PO BID #120 tablet - Provider Discharge Summary Activity: routine, no sex for 6 weeks, no heavy lifting 4 weeks, no strenuous exercise Diet: routine Instructions: routine Additional instructions: [] Smoking cessation referral if applicable(refer to patient education folder for contact #) [] Refer to [facility] Booklet Call your doctor immediately for: * Fever > 100.5 * Heavy vaginal bleeding ( >1 pad per hour) * Severe persistent headache * Shortness of breath * Reddened, hot, painful area to leg or breast * Drainage or odor from incision. * Keep incision clean and dry at all times and follow doctor's instructions regarding bathing/showering - Follow up plan Follow up: MARIUM HORNE MD [Primary Care Provider] - 7 Days
[2017-05-25 12:38] VITALS: BP 125/76
== END 2017-05-25 12:45 | disposition home or self-care (01) | DRG 776 ==
LOC: UNDOADMIN 16:11 → 3A 16:11 → OB 16:32
PROVIDERS: ADMIT Obstetrics & Gynecology; ATTEND Obstetrics & Gynecology
DX: O14.95 Unspecified pre-eclampsia, complicating the puerperium (principal); O99.215 Obesity complicating the puerperium; E66.01 Morbid (severe) obesity due to excess calories; O90.81 Anemia of the puerperium; D64.9 Anemia, unspecified; Z68.34 Body mass index [BMI] 34.0-34.9, adult; O86.0 Infection of obstetric surgical wound; Z53.29 Procedure and treatment not carried out because of patient's decision for other reasons
CPT/HCPCS: 36415; 81001; 82565; 83615; 83735; 84450; 84460; 84550; 85027; J0360; J0610; J3475; J7120

== ENCOUNTER 2019-11-04 23:52 | Emergency (ER) | payer MEDICAID, OTHER ==
[2019-11-05 00:40] VITALS: BP 134/61
[2019-11-05] MEDS ORDERED: KETOROLAC 30 MG/1 ML INJ IM ONE (06:55)
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
[2019-11-05] MEDS ORDERED: traMADol 50 MG TAB PO ONE (07:03)
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
== END 2019-11-05 07:43 | disposition home or self-care (01) ==
LOC: ED 23:52
DX: S39.012A Strain of muscle, fascia and tendon of lower back, initial encounter (principal); F17.200 Nicotine dependence, unspecified, uncomplicated; Z79.899 Other long term (current) drug therapy; V49.49XA Driver injured in collision with other motor vehicles in traffic accident, initial encounter; Y93.89 Activity, other specified; Y92.410 Unspecified street and highway as the place of occurrence of the external cause; Y99.8 Other external cause status
CPT/HCPCS: 72100; 99283; J1885